=== PATIENT | male | born 1975 | race Hispanic/Latino ===

== ENCOUNTER 2017-07-30 13:23 | Emergency (ER) | payer BC ==
[2017-07-30 13:49] VITALS: TEMP 98.1
--- NOTE | 2017-07-30 15:42 | C.PDOC ---
History Of Present Illness Shahzad Pierce is a 41 year old male, with a past medical history of asthma, who presents to the emergency department complaining of a laceration to the right hand between third and fourth digit onset prior to arrival. Patient reports he dropped the lid of a can of soup and when he tried to grab it he cut his hand. He denies any fever, chills, nausea, or vomit. No further medical complaints. PMD: None provided. Time Seen by Provider: 07/30/17 14:59 Chief Complaint (Nursing): Abnormal Skin Integrity History Per: Patient History/Exam Limitations: no limitations Onset/Duration Of Symptoms: Mins (prior to arrival) Current Symptoms Are (Timing): Still Present Location Of Injury: Right: Hand (interdigital web) Severity: Mild Past Medical History Reviewed: Historical Data, Nursing Documentation, Vital Signs Vital Signs: Last Vital Signs Temp 98.1 F 07/30/17 16:40 Pulse 62 07/30/17 16:40 Resp 16 07/30/17 16:40 BP 111/70 07/30/17 16:40 Pulse Ox 100 07/30/17 22:17 - Medical History PMH: Asthma Family History: States: Unknown Family Hx - Social History Hx Tobacco Use: No Hx Alcohol Use: Yes Hx Substance Use: No - Immunization History Hx Tetanus Toxoid Vaccination: No Hx Influenza Vaccination: No Hx Pneumococcal Vaccination: No Review Of Systems Except As Marked, All Systems Reviewed And Found Negative. Constitutional: Negative for: Fever, Chills Gastrointestinal: Negative for: Nausea, Vomiting Musculoskeletal: Positive for: Hand Pain (right hand laceration between third and fourth digit) Physical Exam - Physical Exam Appears: Well, Non-toxic, No Acute Distress Skin: Normal Color, Warm, Dry Head: Atraumatic, Normacephalic Eye(s): bilateral: Normal Inspection, PERRL, EOMI Ear(s): Bilateral: Normal Nose: Normal Throat: Normal Neck: Normal Extremity: Other (2 cm superficial Laceration between 3rd and 4th digit. ) Neurological/Psych: Oriented x3, Normal Speech, Normal Motor, Normal Sensation ED Course And Treatment O2 Sat by Pulse Oximetry: 100 (RA) Pulse Ox Interpretation: Normal Laceration - Laceration Repair Right hand interdigital web Wound Length (In cm): 2 Description Of Wound: Linear Wound Cleansed With: Sterile Saline Wound Examination: Irrigated With Saline (high pressure), No FB With Wound Exploration, No Tendon Injury With Wound Exploration Wound Closure: Skin Glue Wound Complexity: Simple Medical Decision Making Medical Decision Making: Initial Plan: -The wound was cleaned, the area was prepped and draped in the usual sterile fashion. The wound was closed with skin glue. The patient tolerated the procedure well and there were no complications. Scribe Attestation The documentation for this encounter was entered by Alverto Bailey acting as a scribe for Radha VELARDE All medical record entries made by the Scribe were at my direction and personally dictated by me. I have reviewed the chart and agree that the record accurately reflects my personal performance of the history, physical exam, medical decision making, and the department course for this patient. I have also personally directed, reviewed, and agree with the discharge instructions and disposition. Disposition Counseled Patient/Family Regarding: Diagnosis, Need For Followup - Disposition Referrals: FAMILY PROVIDER,NO [Family Provider] - Disposition: HOME/ ROUTINE Disposition Time: 16:19 Condition: STABLE Additional Instructions: WOUND CHECK IN 2 DAYS. IF WOUND REDNESS, SWELLING OR DISCHARGE DEVELOP RETURN TO ED. Instructions: Laceration (ED), Skin Adhesive Care (ED) Forms: [facility] (Green[place]ic), General Discharge Instructions - Clinical Impression Clinical Impression: Laceration of hand
[2017-07-30] MEDS ORDERED: Tetanus/Diphtheria Toxoids 0.5 ml Syringe IM ONE ×2 (16:17→16:38)
[2017-07-30 16:51] VITALS: BP 111/70; PULSE 62; RESP 16
[2017-07-30 22:17] VITALS: O2SAT 100
== END 2017-07-30 16:50 | disposition home or self-care (01) ==
LOC: C.ER 13:23
DX: S61.411A Laceration without foreign body of right hand, initial encounter (principal); W26.8XXA Contact with other sharp object(s), not elsewhere classified, initial encounter; Y93.G9 Activity, other involving cooking and grilling; Y92.89 Other specified places as the place of occurrence of the external cause; Z23 Encounter for immunization